=== PATIENT | male | born 1930 | race Caucasian/White ===

== ENCOUNTER 2017-12-04 09:44 | Emergency (ER) | payer MEDICARE, MEDICAID ==
[~2017-12-04] VITALS: Ht 185.4 cm; Wt 66.7 kg
[2017-12-04 09:44] VITALS: BP 145/71
[~2017-12-04 09:44] MED LIST: AMLO5TAB2 PO; TAMS-12 PO
--- NOTE | 2017-12-04 10:00 | NUR ---
BIBRA 898 C/O LEFT GROIN AND HIP PAIN SINCE YESTERDAY, WORSE TODAY, PT STATES THAT HE FELL YESTERDAY. PT IS AFEBRILE. VSS
[2017-12-04 10:22] LABS: BASOPHILS # (AUTO) 0.1 /CMM (0.0-0.2); BASOPHILS % (AUTO) 0.8 % (0.0-2.0); EOSINOPHILS # (AUTO) 0.3 /CMM (0.0-0.7); EOSINOPHILS % (AUTO) 3.2 % (0.0-6.0); HEMATOCRIT 40 % (39-51); HEMOGLOBIN 13.8 g/dL (13.5-17.5); LYMPHOCYTES # (AUTO) 0.7 /CMM (0.8-4.8); LYMPHOCYTES % (AUTO) 8.2 % (20.0-44.0); MEAN CORPUSCULAR HEMOGLOBIN 32 PG (26.0-33.0); MEAN CORPUSCULAR HGB CONC 35 g/dl (31.0-36.0); MEAN CORPUSCULAR VOLUME 91 fL (80-96); MONOCYTES # (AUTO) 0.8 /CMM (0.1-1.30); MONOCYTES % (AUTO) 9.1 % (2.0-12.0); NEUTROPHILS # (AUTO) 6.9 /CMM (1.8-8.9); NEUTROPHILS % (AUTO) 78.7 % (43.0-81.0); PLATELET COUNT (AUTO) 218 /CMM (150-450); RDW COEFFICIENT OF VARIATION 13.3 (11.5-15.0); RED BLOOD CELL COUNT(AUTO) 4.38 MIL/uL (4.5-6.0); WHITE BLOOD COUNT (AUTO) 8.8 K/uL (4.3-11.0)
[2017-12-04 10:33] LABS: CALCIUM, SERUM 8.6 mg/dL (8.5-10.1); CARBON DIOXIDE 26 mmol/L (21-32); CHLORIDE 103 mmol/L (98-107); CREATININE 1.4 mg/dL (0.6-1.3); GLUCOSE 128 mg/dL (74-106); POTASSIUM 4.5 mmol/L (3.5-5.1); SODIUM SERUM 135 mmol/L (136-145); UREA NITROGEN, BLOOD 26 mg/dL (7-18)
[2017-12-04 10:39] LABS: ALANINE AMINOTRANSFERASE 19 U/L (12-78); ALBUMIN 3.1 g/dL (3.4-5.0); ALKALINE PHOSPHATASE 108 U/L (46-116); ASPARTATE AMINOTRANSFERASE 17 U/L (15-37); BILIRUBIN,DIRECT 0.3 mg/dL (0.0-0.2); BILIRUBIN,TOTAL 0.9 mg/dL (0.2-1.0); TOTAL PROTEIN, SERUM 6.9 g/dL (6.4-8.2)
[2017-12-04 10:41] LABS: TROPONIN I < 0.017 ng/mL (0.00-0.056)
--- NOTE | 2017-12-04 14:14 | NUR ---
ESTEVAN DUTTA PT IS GOING TO [facility] [address] DRISS IS THE NURSE [phone] TRANSPORT IS HERE IN 30 MIN. NEED RECORDS FAX TO [phone]
--- NOTE | 2017-12-04 14:49 | NUR ---
PATIENT IS REFUSING TO BE TRANSFERRED TO ANOTHER HOSPITAL. NUT SHELLER MACHINE OPERATOR BECKI MADE AWARE.
--- NOTE | 2017-12-04 15:03 | NUR ---
PATIENT WAS PICKED UP BY TWO CEMENT GRINDING MILL OPERATOR, GOING TO [facility]. VSS
--- NOTE | 2017-12-04 15:32 | NUR ---
[employer]ap[employer] Mache[employer] Molder Consult was requested by Dr. Miller regarding placement. Pt is an 87 year old male who was admitted to [facility] for inability to walk. SW met with the pt at his bedside. The pt. is oriented x4. Patient is [place] [address] [place] [address]. The pt.s emergency contact is his friend Brina Fitzpatrick ([phone]). Pt denies drug and alcohol use. Pt reports that he smokes half a pack of cigarettes a day. Patient denies any suicidal or homicidal ideation. Pt denies any visual or auditory hallucinations. SW spoke with Dr. Miller and reported to him that the pt. does not want to go to SNF or a [facility]. Pt reported that if he cant walk he rather be . SW offered pt. referrals and resources and pt. declined. SW spoke to Case management in regards to finding him placement. Plan: [facility] arranged for pt to be transferred to [facility]. SW was called to calm pt. down but pt. was very irritable and aggressive. Pt will be transferred due to his insurance.
== END 2017-12-04 15:05 | disposition home or self-care (01) ==
LOC: ER 09:45
DX: R26.2 Difficulty in walking, not elsewhere classified (principal); I70.0 Atherosclerosis of aorta; F17.200 Nicotine dependence, unspecified, uncomplicated; Z91.011 Allergy to milk products; Z91.013 Allergy to seafood; Z59.0 Homelessness; Y95 Nosocomial condition
CPT/HCPCS: 36415; 71045; 73503; 80048; 80076; 84484; 85025; 85730; 87081; 93005; 99285; A4606; 73502; Z7610